=== PATIENT | male | born 1960 | race Caucasian/White ===

== ENCOUNTER 2019-04-18 17:46 | Emergency (ER) | payer OTHER ==
[~2019-04-18] VITALS: Ht 157.5 cm; Wt 77.6 kg
[2019-04-18 17:51] VITALS: BP 128/72
--- NOTE | 2019-04-18 17:54 | NUR ---
PT AMBULATED TO BED
--- NOTE | 2019-04-18 18:15 | NUR ---
58/M PRESENTS TO ED, C/O 12/01 ACHING CONSTANT BL LOWER BACK PAIN, WITH INTERMITTENT RADIATION TO BLE, X3 WEEKS, EXACERBATED BY STANDING AND ACTIVITY. PT DENIES TRAUMA/INJURY. DENIES FEVER, N/V/D, CONSTIPATION, DYSURIA/HEMATURIA. NO BRUISING/SWELLING/ERYTHEMA NOTED ON SITE. PT AWAKE AND ALERT, SKIN NORMAL WARM AND DRY, RR EVEN AND UNLABORED. BS ACTIVE X4, ABD SOFT FLAT NONTENDER. HX: KIDNEY STONES, BPH, HIGH CHOLESTEROL, HYPOTHYROID RX: TAMSULOSIN, LEVOTHYROXINE, SIMVASTATIN
--- NOTE | 2019-04-18 19:08 | NUR ---
Dr. Brown examining patient.
[2019-04-18] MEDS ORDERED: KETOROLAC 30 MG/ML VIAL IM ONE (19:25)
[2019-04-18 19:49] LABS: BASOPHILS % (AUTO) 0.7 % (0.0-2.0); EOSINOPHILS # (AUTO) 0.2 K/uL (0-0.4); EOSINOPHILS % (AUTO) 3.1 % (0.0-4.0); HEMATOCRIT 44.7 % (36-52); HEMOGLOBIN 15.2 g/dL (12.0-18.0); LYMPHOCYTES # (AUTO) 2.4 K/uL (2.0-11.5); LYMPHOCYTES % (AUTO) 34.8 % (20.5-51.1); MEAN CORPUSCULAR HEMOGLOBIN 33 pg (27-31); MEAN CORPUSCULAR HGB CONC 34 g/dL (33-37); MEAN CORPUSCULAR VOLUME 95.2 fL (80-94); MONOCYTES # (AUTO) 0.6 K/uL (0.8-1.0); MONOCYTES % (AUTO) 9.3 % (1.7-9.3); NEUTROPHILS # (AUTO) 3.6 K/uL (1.8-7.7); NEUTROPHILS % (AUTO) 52.1 % (42.2-75.2); PLATELET COUNT (AUTO) 200 K/uL (140-450); RED BLOOD CELL COUNT(AUTO) 4.69 MIL/uL (4.20-6.10); RED CELL DISTRIBUTION WIDTH 13.4 % (11.6-13.7)
[2019-04-18 20:00] LABS: APPEARANCE,URINE CLEAR (CLEAR); BILIRUBIN,URINE NEGATIVE (NEGATIVE); BLOOD, URINE NEGATIVE (NEGATIVE); COLOR,URINE YELLOW (YELLOW); LEUKOCYTE ESTERASE ,URINE TRACE (NEGATIVE); NITRITE, URINE NEGATIVE (NEGATIVE); PH,URINE 5.5 (5.0-9.0); UGLUCOSE NEGATIVE (NEGATIVE)
--- NOTE | 2019-04-18 20:04 | NUR ---
PT RETURN FROM CT
[2019-04-18 20:19] LABS: RBC,URINE NONE SEEN /HPF (0-5); WBC,URINE 0-5 /HPF (0-5); YEAST,URINE None Seen /HPF (None Seen)
[2019-04-18 20:21] LABS: ANION GAP 12.6 (8-16); CARBON DIOXIDE 28.7 mmol/L (21-32); POTASSIUM 3.3 mmol/L (3.5-5.1)
[2019-04-18 20:22] LABS: ALBUMIN 3.9 g/dL (3.4-5.0); CREATININE 1.1 mg/dL (0.7-1.3); TOTAL BILIRUBIN 0.5 mg/dL (0.0-1.0)
[2019-04-18 21:25] VITALS: BP 133/87
--- NOTE | 2019-04-18 21:32 | NUR ---
Patient discharged with v/s stable. Written and verbal after care instructions given ABOUT FLANK PAIN and explained. Patient alert, oriented and verbalized understanding of instructions. Ambulatory with steady gait. All questions addressed prior to discharge. ID band removed. Patient advised to follow up with PMD. Rx of NAPROSYN given. Patient educated on indication of medication including possible reaction and side effects. Opportunity to ask questions provided and answered.
== END 2019-04-18 21:32 | disposition home or self-care (01) ==
LOC: MED 17:46
DX: N28.1 Cyst of kidney, acquired (principal); E03.9 Hypothyroidism, unspecified; N40.0 Benign prostatic hyperplasia without lower urinary tract symptoms; Z98.890 Other specified postprocedural states
CPT/HCPCS: 36415; 74176; 80053; 81001; 83690; 85025; 96372; 99284; J1885

== ENCOUNTER 2020-08-21 09:06 | Emergency (ER) | payer OTHER ==
[~2020-08-21] VITALS: Ht 152.4 cm; Wt 73.5 kg
[2020-08-21 09:10] VITALS: BP 119/73
--- NOTE | 2020-08-21 09:10 | NUR ---
Patient ambulated to bed 2. RN evaluating the patient at bedside.
--- NOTE | 2020-08-21 09:20 | NUR ---
60 Y/O MALE BIB SELF C/O LEFT CHEST PAIN AND SKIN ANOMALY LEFT SIDE OF ABDOMEN X 3 DAYS. PAIN 7/10, CONTIUOUS, DULL. PT TOOK DOUBLE DOSE OF PRESCRIBED STATIN MEDICATION TO ADDRESS PAIN; NO RELIEF. PT DENIES NAUSEA/VOMITING, SWEATING SKIN ANOMALY ON LEFT ADOMEN POSSIBLE SHINGLES, PT STATES IRRITATING/BURNING SENSATION; VALACYCLOVIR PRESCRIBED BY PCP. AO4, BREATHING EVEN AND UNLABORED, SKIN WARM AND DRY. BED IN LOWEST POSITION, LOCKED, X1 SIDERAIL UP. PMHX - BPH, HYPOTHYROID, HLD NKA
--- NOTE | 2020-08-21 09:26 | NUR ---
Dr. Hayes is evaluating the patient at bedside.
[2020-08-21] MEDS ORDERED: KETOROLAC 60 MG/2 ML VIAL IM ONE (09:30)
[2020-08-21] MEDS ORDERED: ACET-8386 PO (10:11)
[2020-08-21] MEDS ORDERED: IBUP-2213 PO (10:11)
[2020-08-21 10:38] VITALS: BP 119/73
--- NOTE | 2020-08-21 10:38 | NUR ---
Patient discharged with v/s stable. Written and verbal after care instructions given and explained. Patient alert, oriented and verbalized understanding of instructions. Ambulatory with steady gait. All questions addressed prior to discharge. ID band removed. Patient advised to follow up with PMD. Rx of Hydrocodone/Acetaminophen, Ibuprofen given. Patient educated on indication of medication including possible reaction and side effects. Opportunity to ask questions provided and answered.
== END 2020-08-21 10:38 | disposition home or self-care (01) ==
LOC: MED 09:06
DX: R07.89 Other chest pain (principal); E03.9 Hypothyroidism, unspecified; Z98.890 Other specified postprocedural states
CPT/HCPCS: 93005; 96372; 99283; J1885